=== PATIENT | female | born 1950 | race Two or more races ===

== ENCOUNTER → 2017-07-10 15:18 | Outpatient (CLI) | payer OTHER | END | disposition home or self-care (01) | LOC: LAB 15:18 | DX: R30.0 Dysuria (principal); R10.2 Pelvic and perineal pain ==

== ENCOUNTER → 2017-07-12 08:52 | Outpatient (CLI) | payer OTHER | END | disposition home or self-care (01) | LOC: LAB 08:52 | DX: Z12.11 Encounter for screening for malignant neoplasm of colon (principal) ==

== ENCOUNTER 2017-10-02 07:48 | Outpatient (CLI) | payer OTHER | END 2017-10-02 08:01 | disposition home or self-care (01) | LOC: SONOGRAMA 07:48 → MAMO-SONO 08:45 | DX: R10.84 Generalized abdominal pain (principal) ==

== ENCOUNTER → 2017-10-31 | Outpatient (CLI) | payer OTHER | END | disposition home or self-care (01) | LOC: RAD 14:05 | DX: R10.2 Pelvic and perineal pain (principal); R31.0 Gross hematuria; M54.5 Low back pain ==

== ENCOUNTER 2018-04-28 08:29 | Outpatient (CLI) | payer OTHER | END 2018-04-28 08:37 | disposition home or self-care (01) | LOC: SONOGRAMA 08:29 → MAMO-SONO 10:15 | DX: R10.13 Epigastric pain (principal); R10.32 Left lower quadrant pain ==

== ENCOUNTER 2019-02-28 13:49 | Emergency (ER) | payer OTHER ==
[~2019-02-28] VITALS: Ht 162.6 cm; Wt 72.6 kg
[2019-02-28] MEDS ORDERED: ATORVASTATIN CA20 MG PO (14:55)
[2019-02-28] MEDS ORDERED: SYNTHROID50 MCG PO (14:55)
[2019-02-28] MEDS ORDERED: KEFLEX500 MG (14:56)
[2019-02-28] MEDS ORDERED: CHLORDIAZEPOXI1 EACH PO (20:27)
== END 2019-02-28 21:05 | disposition home or self-care (01) ==
LOC: ER 13:49
DX: K58.8 Other irritable bowel syndrome (principal); R10.84 Generalized abdominal pain

== ENCOUNTER 2019-03-19 10:02 | Outpatient (CLI) | payer OTHER ==
[~2019-03-19 10:02] MED LIST: ATORVASTATIN CA20 MG PO; CHLORDIAZEPOXI1 EACH PO; KEFLEX500 MG; SYNTHROID50 MCG PO
== END 2019-03-19 10:07 | disposition home or self-care (01) ==
LOC: SONOGRAMA 10:02
DX: R31.29 Other microscopic hematuria (principal)

== ENCOUNTER 2019-07-18 08:14 | Outpatient (CLI) | payer OTHER | END 2019-07-18 08:20 | disposition home or self-care (01) | LOC: SONOGRAMA 08:14 → MAMO-SONO 09:45 | DX: R16.2 Hepatomegaly with splenomegaly, not elsewhere classified (principal) ==

== ENCOUNTER 2019-11-20 09:32 | Outpatient (CLI) | payer OTHER | END 2019-11-20 09:35 | disposition home or self-care (01) | LOC: LAB 09:32 | PROVIDERS: ATTEND Internal Medicine Gastroenterology | DX: K76.0 Fatty (change of) liver, not elsewhere classified (principal); Z12.11 Encounter for screening for malignant neoplasm of colon ==

== ENCOUNTER 2019-11-22 09:27 | Outpatient (CLI) | payer OTHER | END 2019-11-22 09:38 | disposition home or self-care (01) | LOC: TOM 09:27 | PROVIDERS: ATTEND Internal Medicine Gastroenterology | DX: R10.2 Pelvic and perineal pain (principal) ==